=== PATIENT | male | born 1935 | race Asian ===

== ENCOUNTER 2016-12-18 15:25 | Emergency (ER) | payer OTHER ==
[~2016-12-18 15:25] MED LIST: ATEN-102 PO; CART240C4 PO; ENAL20TA PO; NORC7.5T PO; SIMV20TA PO; ST J81CH PO
[2016-12-18] MEDS ORDERED: EPINEPHrine HCL (1:10,000) 1 MG/10 ML SYRINGE IV ONE (15:26)
--- NOTE | 2016-12-18 15:33 | PD ---
HPI Chief Complaint: cardiopulmonary arrest Time Seen by Provider: 15:32 Travel History International Travel<30 days: No Contact w/Intl Traveler<30days: No History of Present Illness HPI 82 yo M arrives in cardiac arrest. He was found down next to a house, unknown down time, where a bystander called EMS. No CPR done while waiting for EMS. Asystolic on scene. Three rounds epi, sodium bicarb and combitube intubation. Pt remained asystolic throughout pre-hospital course, approx 25 minutes. Location: cardiopulmonary. Timing constant. Duration unknown. PFSH Past Medical History Hx Anticoagulant Therapy: No Arthritis: No Asthma: No Autoimmune Disease: No Heart Rhythm Problems: No Cancer: Yes (PROSTATE) Cardiovascular Problems: No High Cholesterol: No Chest Pain: No Congestive Heart Failure: No COPD: No Cerebrovascular Accident: No Diabetes: No Endocrine: No GERD: No Genitourinary: No Hepatitis: No Hiatal Hernia: No Hypertension: Yes Immune Disorder: No Kidney Stones: No Musculoskeletal: No Neurologic: No Psychiatric: No Reproductive: No Respiratory: No Migraines: No Radiation Therapy: Yes Renal Failure: No Seizures: No Sleep Apnea: No Thyroid Disease: No Ulcer: No Past Surgical History Abdominal Surgery: Yes (RIGHT ING. HERNIA REP.) Other Surgery: Yes Social History Alcohol Use: No Tobacco Use: No Substance Use: No Allergies-Medications (Allergen,Severity, Reaction): Coded Allergies: No Known Allergies (Verified , 05/01/15) Reported Meds & Prescriptions Reported Meds & Active Scripts Active Aspirin 81 mg chewable (Aspirin) 81 Mg Chw 81 Mg PO DAILY 30 Days [place] 7.5/325 (Hydrocodone/Acetaminophen 7.5/325) 7.5 Mg/325 Mg Tab 1 Tab PO Q4H PRN Enalapril Maleate 20 Mg Tab 20 Mg PO BID Atenolol 50 Mg Tab 50 Mg PO BID Cartia XT 240 mg (DILTIAZEM XT 240 mg (Cartia)) 240 Mg/24 Hr Cap 240 Mg PO DAILY Reported Simvastatin 20 Mg Tab 20 Mg PO WEEKLY Review of Systems ROS Limitations: Clinical Condition, Altered Mental Status, Unresponsive Physical Exam Narrative GENERAL: 81 yo M unresponsive, GCS 3T SKIN: Large swaths of sloughing epidermis. HEAD: Atraumatic. Normocephalic. EYES: Pupils fixed and dilated. ENT: No nasal bleeding or discharge. Mucous membranes dry. Intubated. NECK: Trachea midline. No JVD. CARDIOVASCULAR: Asystolic. RESPIRATORY: Breath sounds present bilaterally with BVM. GASTROINTESTINAL: Soft. No organomegaly. MUSCULOSKELETAL: Flexion 90 at L elbow. NEUROLOGICAL: GCS 3T. PSYCHIATRIC: Unable to assess. MDM Medical Decision Making Medical Screen Exam Complete: Yes Emergency Medical Condition: Yes Medical Record Reviewed: Yes Differential Diagnosis cardiac arrest, hypoxia, aspiration, arrhytmia Narrative Course ACLS protocol continued here. At [address] Bui notified. He will complete certificate. Diagnosis Primary Impression: Additional Instructions: Not applicable Med/Other Pt SpecificInfo: Other Disposition: 20 Condition: Stable Magdaleno Oneil MD Dec 18, 2016 15:33
== END 2016-12-18 16:15 | disposition expired ==
LOC: NEPC 15:25
DX: I46.9 Cardiac arrest, cause unspecified (principal)
CPT/HCPCS: 92950; J0171